=== PATIENT | male | born 1940 | race African-American/Black ===

== ENCOUNTER 2022-02-25 12:03 | Inpatient (IN) | payer BC, MEDICAID ==
[~2022-02-25] VITALS: Ht 172.7 cm; Wt 66.7 kg
[2022-02-25 14:23] LABS: BASOPHILS % 0.4 % (0.0-2.0); EOSINOPHILS % 0.1 % (0.0-5.0); HEMATOCRIT. 44.7 % (42.0-52.0); HEMOGLOBIN. 15.2 g/dL (14.0-18.0); LYMPHOCYTES % 20.2 % (20.0-50.0); MEAN CORPUSCULAR HEMOGLOBIN 33.7 pg (28.0-32.0); MEAN CORPUSCULAR VOLUME 99.3 fL (80.0-94.0); MEAN PLATELET VOLUME 8.3 fl (7.4-10.4); MONOCYTES % 11.4 % (2.0-8.0); NEUTROPHILS % 67.9 % (40.0-76.0); PLATELET 147 x1000/uL (130-400); RED BLOOD CELL COUNT 4.51 mill/uL (4.7-6.1); RED CELL DISTRIBUTION WIDTH 14.6 % (11.6-14.6)
[2022-02-25] MEDS ORDERED: ENOXAPARIN 60MG/0.6ML SYR SUBCUT ONE (14:30)
[2022-02-25 14:35] LABS: CHLORIDE 98 mEq/L (98-107)
[2022-02-25 14:46] LABS: ETHANOL BLOOD < 10 mg/dL
[2022-02-25 15:26] LABS: INR 1.2; PARTIAL THROMBOPLASTIN TIME 23.9 sec (23.4-31.0); PROTHROMBIN TIME 12.3 sec (9.6-11.0)
[2022-02-25] MEDS ORDERED: ASPIRIN 325MG EC TABLET PO NR (16:00)
[2022-02-25 19:00] VITALS: BP 146/81
[2022-02-25 20:00] VITALS: BP 155/74
[2022-02-25 20:52] VITALS: BP 155/74
[2022-02-25] MEDS ORDERED: ONDANSETRON HCL 4MG/2ML INJ IV PRN (22:30)
[2022-02-25] MEDS ORDERED: MORPHINE SULFATE 2 MG/ML CPJ (NOT FOR IM USE) IV PRN (22:30)
[2022-02-25] MEDS ORDERED: NALOXONE HCL 0.4MG/ML VIAL IV PRN (22:30)
[2022-02-25] MEDS ORDERED: SODIUM CHLORIDE 0.9% 1,000 ML IV SCH (22:30)
[2022-02-26] VITALS: BP 157/78
[2022-02-26 04:00] VITALS: BP 111/57
[2022-02-26] MEDS: ENOXAPARIN 80MG/0.8ML SYR SUBCUT SCH ×2 (05:12→17:19)
[2022-02-26 06:25] LABS: BASOPHILS % 0.3 % (0.0-2.0); EOSINOPHILS % 2.3 % (0.0-5.0); HEMATOCRIT. 37.6 % (42.0-52.0); HEMOGLOBIN. 12.8 g/dL (14.0-18.0); LYMPHOCYTES % 27.9 % (20.0-50.0); MEAN CORPUSCULAR HEMOGLOBIN 33.3 pg (28.0-32.0); MEAN CORPUSCULAR VOLUME 98.1 fL (80.0-94.0); MEAN PLATELET VOLUME 8.4 fl (7.4-10.4); MONOCYTES % 14.4 % (2.0-8.0); NEUTROPHILS % 55.1 % (40.0-76.0); PLATELET 133 x1000/uL (130-400); RED BLOOD CELL COUNT 3.83 mill/uL (4.7-6.1); RED CELL DISTRIBUTION WIDTH 14.2 % (11.6-14.6)
[2022-02-26 06:37] LABS: CHLORIDE 101 mEq/L (98-107)
[2022-02-26 06:50] LABS: CREATINE KINASE 124 IU/L (39-308); CREATINE KINASE MB FRACTION 6.9 ng/mL (0.5-3.6)
[2022-02-26 08:00] VITALS: BP 146/68
[2022-02-26] MEDS: AMLODIPINE 5MG TABLET PO SCH ×2 (09:38→21:32)
[2022-02-26 12:00] VITALS: BP 142/60
[2022-02-26 15:40] LABS: CREATINE KINASE MB FRACTION 7.5 ng/mL (0.5-3.6)
[2022-02-26 15:54] VITALS: BP 140/61
[2022-02-26 20:00] VITALS: BP 155/60
[2022-02-27] VITALS: BP 145/66
[2022-02-27 04:00] VITALS: BP 153/64
[2022-02-27 07:12] LABS: BASOPHILS % 0.4 % (0.0-2.0); EOSINOPHILS % 1.7 % (0.0-5.0); HEMOGLOBIN. 12.8 g/dL (14.0-18.0); LYMPHOCYTES % 26.6 % (20.0-50.0); MEAN CORPUSCULAR HEMOGLOBIN 33.1 pg (28.0-32.0); MEAN CORPUSCULAR VOLUME 98.4 fL (80.0-94.0); MEAN PLATELET VOLUME 8.7 fl (7.4-10.4); MONOCYTES % 12.8 % (2.0-8.0); NEUTROPHILS % 58.5 % (40.0-76.0); PLATELET 153 x1000/uL (130-400); RED BLOOD CELL COUNT 3.86 mill/uL (4.7-6.1); RED CELL DISTRIBUTION WIDTH 13.9 % (11.6-14.6)
[2022-02-27 07:49] LABS: CHLORIDE 102 mEq/L (98-107)
[2022-02-27 08:00] VITALS: BP 146/69
[2022-02-27] MEDS: AMLODIPINE 5MG TABLET PO SCH ×2 (08:49→21:16)
[2022-02-27 12:00] VITALS: BP 130/64
[2022-02-27] MEDS: HYDRALAZINE HCL 25MG TABLET PO SCH ×2 (14:00→21:16)
[2022-02-27 16:00] VITALS: BP 130/64
[2022-02-27 20:00] VITALS: BP 146/57
[2022-02-28] VITALS: BP 138/62
[2022-02-28 04:00] VITALS: BP 144/64
[2022-02-28] MEDS: HYDRALAZINE HCL 25MG TABLET PO SCH ×3 (05:55→21:22)
[2022-02-28 06:46] LABS: HEMATOCRIT. 38.5 % (42.0-52.0); HEMOGLOBIN. 13.2 g/dL (14.0-18.0); MEAN CORPUSCULAR HEMOGLOBIN 33.4 pg (28.0-32.0); MEAN CORPUSCULAR VOLUME 97.5 fL (80.0-94.0); MEAN PLATELET VOLUME 8.5 fl (7.4-10.4); PLATELET 134 x1000/uL (130-400); RED BLOOD CELL COUNT 3.94 mill/uL (4.7-6.1); RED CELL DISTRIBUTION WIDTH 14.1 % (11.6-14.6)
[2022-02-28 08:00] VITALS: BP 116/74
[2022-02-28 08:09] LABS: CHLORIDE 102 mEq/L (98-107)
[2022-02-28] MEDS: AMLODIPINE 5MG TABLET PO SCH ×2 (08:53→21:22)
[2022-02-28] MEDS: ACETAMINOPHEN 325MG TABLET PO PRN (08:53)
[2022-02-28 09:02] LABS: PLATELET ESTIMATE NORMAL
[2022-02-28] MEDS ORDERED: HYDR-4001 MT (11:48)
[2022-02-28 12:00] VITALS: BP 113/50
[2022-02-28] MEDS ORDERED: HYDR-4134 PO (12:30)
[2022-02-28] MEDS ORDERED: AMLO5TAB88 PO (12:30)
[2022-02-28 16:00] VITALS: BP 130/56
[2022-02-28] MEDS: ENOXAPARIN 80MG/0.8ML SYR SUBCUT SCH (18:48)
[2022-03-01 00:19] VITALS: BP 131/73
[2022-03-01] MEDS: ACETAMINOPHEN 325MG TABLET PO PRN ×3 (00:25→19:50)
[2022-03-01 04:00] VITALS: BP 134/62
[2022-03-01] MEDS: HYDRALAZINE HCL 25MG TABLET PO SCH ×2 (05:10→15:00)
[2022-03-01] MEDS: ENOXAPARIN 80MG/0.8ML SYR SUBCUT SCH ×2 (05:10→18:30)
[2022-03-01] MEDS: AMLODIPINE 5MG TABLET PO SCH (09:00)
[2022-03-01 12:00] VITALS: BP 136/74
[2022-03-01 16:00] VITALS: BP 140/74
[2022-03-01 17:40] VITALS: BP 140/74
== END 2022-03-01 19:30 | DRG 300 ==
LOC: ER 12:08 → 6WST 15:56 → ENRESERV 17:33
PROVIDERS: ADMIT Internal Medicine; ATTEND Internal Medicine
DX: I82.411 Acute embolism and thrombosis of right femoral vein (principal); C79.51 Secondary malignant neoplasm of bone; E87.1 Hypo-osmolality and hyponatremia; I10 Essential (primary) hypertension; E78.00 Pure hypercholesterolemia, unspecified; Z20.822 Contact with and (suspected) exposure to COVID-19; J44.9 Chronic obstructive pulmonary disease, unspecified; Z82.49 Family history of ischemic heart disease and other diseases of the circulatory system; Z88.0 Allergy status to penicillin; Z87.891 Personal history of nicotine dependence; Z85.46 Personal history of malignant neoplasm of prostate
CPT/HCPCS: 36415; 71045; 71250; 80048; 80053; 80076; 80320; 82550; 82553; 83880; 84153; 84484; 85025; 87426; 93005; 93306; 93970; 99291; J1650; J2270; G0103; G0480